=== PATIENT | female | born 1995 | race Caucasian/White ===

== ENCOUNTER 2017-04-15 12:06 | Emergency (ER) | payer OTHER ==
[~2017-04-15] VITALS: Ht 157.5 cm; Wt 68.6 kg
[2017-04-15] MEDS ORDERED: OMEP20 PO (12:14)
[2017-04-15 13:55] VITALS: BP 132/87
[2017-04-15] MEDS ORDERED: IBUPROFEN 600 MG TABLET PO ONE (14:45)
== END 2017-04-15 15:12 | disposition home or self-care (01) ==
LOC: EMS 12:08
DX: S16.1XXA Strain of muscle, fascia and tendon at neck level, initial encounter (principal); R20.2 Paresthesia of skin; X50.1XXA Overexertion from prolonged static or awkward postures, initial encounter; Y93.89 Activity, other specified; Y92.89 Other specified places as the place of occurrence of the external cause; Y99.0 Civilian activity done for income or pay
CPT/HCPCS: 99283